=== PATIENT | male | born 1960 | race Hispanic/Latino ===

== ENCOUNTER 2020-07-16 09:31 | Emergency (ER) | payer BC ==
--- NOTE | 2020-07-16 10:04 | RAD ---
EXAM: XR Chest 1 View PROVIDED CLINICAL HISTORY: Covid positive, shortness of breath COMPARISON: 07/09/2020 FINDINGS: Cardiac and mediastinal silhouette is unchanged in appearance. Interval worsening of bilateral patchy interstitial and airspace disease. No pleural fluid or pneumothorax apparent. IMPRESSION: Interval worsening of bilateral airspace disease.
== END 2020-07-16 10:52 | disposition home or self-care (01) ==
LOC: ERS 09:31
DX: U07.1 COVID-19 (principal); E11.9 Type 2 diabetes mellitus without complications; Z79.84 Long term (current) use of oral hypoglycemic drugs
CPT/HCPCS: 71045